=== PATIENT | male | born 1930 | race Two or more races ===

== ENCOUNTER 2016-04-19 16:57 | Inpatient (IN) | payer OTHER ==
[~2016-04-19] VITALS: Ht 170.2 cm; Wt 76.7 kg
[2016-04-19] MEDS ORDERED: ACETAMINOPHEN ES 500 MG TABLET ONE (17:59)
[2016-04-19] MEDS ORDERED: IV NS 0.9% 1,000 ML ONE ×3 (17:59→22:37)
[2016-04-19] MEDS ORDERED: IV SET PRIMARY 1 EA INFUS.SET MC ONE ×2 (17:59→20:24)
[2016-04-19] MEDS ORDERED: ACETAMINOPHEN ES 500 MG TABLET PO ONE (18:00)
[2016-04-19] MEDS ORDERED: IV NS 0.9% 1,000 ML BAG IV ONE ×2 (18:00→19:30)
[2016-04-19 18:08] LABS: BASOPHILS # (AUTO) 0.4 /CMM (0.0-0.2); BASOPHILS % (AUTO) 3.4 % (0.0-2.0); DIFF TOTAL % 100 %; HEMATOCRIT 44 % (39-51); HEMOGLOBIN 14.9 g/dL (13.5-17.5); LYMPHOCYTES % (AUTO) 9.3 % (20.0-44.0); MEAN CORPUSCULAR HEMOGLOBIN 30 PG (26.0-33.0); MEAN CORPUSCULAR HGB CONC 34 g/dl (31.0-36.0); MEAN CORPUSCULAR VOLUME 89 fL (80-96); MONOCYTES # (AUTO) 0.7 /CMM (0.1-1.30); MONOCYTES % (AUTO) 6.5 % (2.0-12.0); NEUTROPHILS # (AUTO) 8.5 /CMM (1.8-8.9); NEUTROPHILS % (AUTO) 80.8 % (43.0-81.0); PLATELET COUNT (AUTO) 198 /CMM (150-450); RED BLOOD CELL COUNT(AUTO) 4.97 MIL/uL (4.5-6.0); WHITE BLOOD COUNT (AUTO) 10.6 K/uL (4.3-11.0)
[2016-04-19 18:18] LABS: ANION GAP 14 (5-14); CALCIUM, SERUM 9.1 mg/dL (8.5-10.1); CARBON DIOXIDE 29 mmol/L (21-32); CHLORIDE 101 mmol/L (98-107); CREATININE 1.9 mg/dL (0.6-1.3); GLUCOSE 209 mg/dL (74-106); POTASSIUM 4.5 mmol/L (3.5-5.1); SODIUM SERUM 139 mmol/L (136-145); UREA NITROGEN, BLOOD 30 mg/dL (7-18)
[2016-04-19 18:22] LABS: INR 1.1 (0.87-1.13); PROTHROMBIN TIME 11.6 SECS (9.5-12.7)
[2016-04-19 18:26] LABS: TROPONIN I < 0.017 ng/mL (0.00-0.056)
[2016-04-19 18:31] LABS: ALANINE AMINOTRANSFERASE 83 U/L (12-78); ALBUMIN 3.1 g/dL (3.4-5.0); ASPARTATE AMINOTRANSFERASE 47 U/L (15-37); BILIRUBIN,DIRECT 0.2 mg/dL (0.0-0.2); BILIRUBIN,TOTAL 0.8 mg/dL (0.2-1.0); INDIRECT BILIRUBIN 0.6 mg/dL (0.0-1.1); TOTAL PROTEIN, SERUM 8.1 g/dL (6.4-8.2)
[2016-04-19] MEDS ORDERED: MULT-24 PO (18:36)
[2016-04-19] MEDS ORDERED: LATA2.5D2 LEFTEYE (18:36)
[2016-04-19] MEDS ORDERED: FURO20TA4 PO (18:36)
[2016-04-19] MEDS ORDERED: CHOL100044 PO (18:36)
[2016-04-19] MEDS ORDERED: FAMO40TA7 PO (18:36)
[2016-04-19] MEDS ORDERED: ASPI-869 PO (18:36)
[2016-04-19] MEDS ORDERED: MELA1TAB17 PO (18:36)
[2016-04-19] MEDS ORDERED: DUTA0.5C15 PO (18:36)
[2016-04-19] MEDS ORDERED: ATOR10TA PO (18:36)
[2016-04-19] MEDS ORDERED: DONE10TA44 PO (18:36)
[2016-04-19] MEDS ORDERED: BRIM5DRO RIGHTEYE (18:36)
[2016-04-19] MEDS ORDERED: INSU100V13 SQ (18:36)
[2016-04-19] MEDS ORDERED: CITA10TA9 PO (18:36)
[2016-04-19 18:58] LABS: LACTIC ACID 2.4 mmol/L (0.4-2.0)
[2016-04-19 19:02] LABS: *LACTIC ACID REFLEX FLAG YES
[2016-04-19] MEDS ORDERED: CEFTRIAXONE 1GM BAG (ER ONLY) 1 GM/50 ML PIGGYBACK IV ONE (19:30)
[2016-04-19 20:11] LABS: KETONES,URINE Negative (NEGATIVE); LEUKOCYTE ESTERASE ,URINE Small (NEGATIVE)
[2016-04-19 20:13] LABS: ADD UA MICROSCOPIC YES
[2016-04-19 20:19] LABS: ADD URINE CULTURE YES
[2016-04-19] MEDS ORDERED: CEFTRIAXONE 1GM BAG (ER ONLY) 50 ML IV ONE (20:24)
[2016-04-19 21:15] VITALS: BP 123/61
[2016-04-19 21:30] VITALS: BP 123/61
[2016-04-19] MEDS ORDERED: MORPHINE SULFATE INJ 2 MG/ML DISP.SYRIN IV PRN (22:30)
[2016-04-19] MEDS ORDERED: CEFTRIAXONE 1 G in IV D5W 50 ML IV SCH (22:30)
[2016-04-19] MEDS ORDERED: Z GUARD REMEDY 2 OZ OINT TP PRN (22:30)
[2016-04-19] MEDS ORDERED: MAGNESIUM HYDROXIDE 30 ML UDC PO PRN (22:30)
[2016-04-19] MEDS ORDERED: MAG HYDROX/AL HYDROX/SIMETH 30 ML UDC PO PRN (22:30)
[2016-04-19] MEDS ORDERED: ZOLPIDEM TARTRATE 5 MG TABLET PO PRN (22:30)
[2016-04-19] MEDS ORDERED: ONDANSETRON HCL/PF 4 MG/2 ML VIAL IVP PRN (22:30)
[2016-04-19] MEDS ORDERED: IV SET PRIMARY PUMP SET 1 EA INFUS.SET MC ONE (22:37)
[2016-04-19] MEDS: IV NS 0.9% 1,000 ML IV PRN (22:47)
[2016-04-20] VITALS: BP 130/72
[2016-04-20 04:00] VITALS: BP 122/77
[2016-04-20] MEDS ORDERED: DEXTROSE 50%-WATER 50 ML DISP.SYRIN IV PRN (04:30)
[2016-04-20] MEDS ORDERED: FUROSEMIDE 20 MG TABLET PO SCH (04:30)
[2016-04-20] MEDS ORDERED: FUROSEMIDE 20 MG TABLET ONE (05:57)
[2016-04-20] MEDS: ACETAMINOPHEN 325 MG TABLET PO PRN (06:01)
[2016-04-20 06:46] LABS: BASOPHILS # (AUTO) 0.1 /CMM (0.0-0.2); BASOPHILS % (AUTO) 0.5 % (0.0-2.0); DIFF TOTAL % 100 %; EOSINOPHILS % (AUTO) 0.2 % (0.0-6.0); HEMATOCRIT 44 % (39-51); HEMOGLOBIN 14.6 g/dL (13.5-17.5); LYMPHOCYTES # (AUTO) 0.9 /CMM (0.8-4.8); LYMPHOCYTES % (AUTO) 8.7 % (20.0-44.0); MEAN CORPUSCULAR HEMOGLOBIN 29 PG (26.0-33.0); MEAN CORPUSCULAR HGB CONC 33 g/dl (31.0-36.0); MEAN CORPUSCULAR VOLUME 89 fL (80-96); MONOCYTES # (AUTO) 1.1 /CMM (0.1-1.30); MONOCYTES % (AUTO) 10.2 % (2.0-12.0); NEUTROPHILS # (AUTO) 8.5 /CMM (1.8-8.9); NEUTROPHILS % (AUTO) 80.4 % (43.0-81.0); PLATELET COUNT (AUTO) 166 /CMM (150-450); RED BLOOD CELL COUNT(AUTO) 4.98 MIL/uL (4.5-6.0); WHITE BLOOD COUNT (AUTO) 10.6 K/uL (4.3-11.0)
[2016-04-20] MEDS: BLOOD SUGAR DIAGNOSTIC 1 EACH STRIP VI SCH ×4 (06:57→21:18)
[2016-04-20] MEDS: INSULIN REGULAR, HUMAN 100 UNIT/ML 3 ML VIAL SQ PRN (06:58)
[2016-04-20 09:01] LABS: ALBUMIN 2.3 g/dL (3.4-5.0); BILIRUBIN,TOTAL 0.4 mg/dL (0.2-1.0); CALCIUM, SERUM 7.5 mg/dL (8.5-10.1); CREATININE 1.5 mg/dL (0.6-1.3); PHOSPHORUS 2.4 mg/dL (2.5-4.9); POTASSIUM 3.8 mmol/L (3.5-5.1); TOTAL PROTEIN, SERUM 6.4 g/dL (6.4-8.2)
[2016-04-20] MEDS: CHOLECALCIFEROL 1,000 UNIT TABLET (VIT D3) PO SCH (09:07)
[2016-04-20] MEDS: DUTASTERIDE (0.5 MG) 0.5 MG CAPSULE PO SCH (09:07)
[2016-04-20] MEDS: MULTIVITAMINS,THERAPEUTIC 1 UDTAB TABLET PO SCH (09:08)
[2016-04-20] MEDS: ASPIRIN EC 325 MG TABLET.DR PO SCH (09:08)
[2016-04-20] MEDS: PANTOPRAZOLE 40 MG VIAL IV SCH (09:08)
[2016-04-20 09:18] VITALS: BP 110/60
[2016-04-20] MEDS: BRIMONIDINE TARTRATE OPHT SOLN 5 ML BOTTLE RIGHTEYE SCH ×2 (10:27→16:12)
[2016-04-20] MEDS: IV NS 0.9% 1,000 ML IV PRN (11:40)
[2016-04-20 12:00] VITALS: BP 111/63
[2016-04-20] MEDS ORDERED: PNEUMOCOCCAL 23-VAL P-SAC VAC 0.5 ML VIAL SQ ONE (13:00)
[2016-04-20 16:00] VITALS: BP 125/66
[2016-04-20] MEDS: Z GUARD REMEDY 2 OZ OINT TP SCH (16:12)
[2016-04-20] MEDS ORDERED: K PHOS NEUTRAL 250 MG TABLET PO ONE (16:30)
[2016-04-20] MEDS: DONEPEZIL 5 MG TABLET PO SCH (17:48)
[2016-04-20] MEDS: ATORVASTATIN 10 MG TABLET PO SCH (17:48)
[2016-04-20] MEDS: *INSULIN REGULAR(HUMULIN R)HUM 100 UNIT/ML VIAL SQ PRN ×2 (17:49→21:27)
[2016-04-20 20:00] VITALS: BP 102/69
[2016-04-20] MEDS: CEFTRIAXONE 1 G in IV D5W 50 ML IV SCH (21:17)
[2016-04-20] MEDS ORDERED: SECONDARY IV SET 1 EA INFUS.SET MC ONE (21:18)
[2016-04-20] MEDS: CITALOPRAM HYDROBROMIDE 10 MG TABLET PO SCH (21:18)
[2016-04-20] MEDS: LATANOPROST EYE DROP 0.005% 2.5 ML BOTTLE LEFTEYE SCH (21:18)
[2016-04-20] MEDS: INSULIN DETEMIR 100 UNIT/ML CARTRIDGE SQ SCH (21:25)
[2016-04-21] VITALS: BP 120/61
[2016-04-21] MEDS: IV NS 0.9% 1,000 ML IV PRN ×2 (03:25→20:52)
[2016-04-21 04:00] VITALS: BP 114/61
[2016-04-21] MEDS: ACETAMINOPHEN 325 MG TABLET PO PRN ×2 (04:13→17:35)
[2016-04-21] MEDS: BLOOD SUGAR DIAGNOSTIC 1 EACH STRIP VI SCH ×4 (06:33→21:22)
[2016-04-21 06:46] LABS: BASOPHILS % (AUTO) 0.2 % (0.0-2.0); DIFF TOTAL % 100 %; EOSINOPHILS % (AUTO) 0.1 % (0.0-6.0); HEMATOCRIT 36 % (39-51); HEMOGLOBIN 12.3 g/dL (13.5-17.5); LYMPHOCYTES # (AUTO) 0.9 /CMM (0.8-4.8); LYMPHOCYTES % (AUTO) 11.3 % (20.0-44.0); MEAN CORPUSCULAR HEMOGLOBIN 30 PG (26.0-33.0); MEAN CORPUSCULAR HGB CONC 34 g/dl (31.0-36.0); MEAN CORPUSCULAR VOLUME 88 fL (80-96); MONOCYTES # (AUTO) 0.7 /CMM (0.1-1.30); MONOCYTES % (AUTO) 9.1 % (2.0-12.0); NEUTROPHILS # (AUTO) 6.1 /CMM (1.8-8.9); NEUTROPHILS % (AUTO) 79.3 % (43.0-81.0); PLATELET COUNT (AUTO) 178 /CMM (150-450); RED BLOOD CELL COUNT(AUTO) 4.14 MIL/uL (4.5-6.0); WHITE BLOOD COUNT (AUTO) 7.7 K/uL (4.3-11.0)
[2016-04-21 07:17] LABS: CALCIUM, SERUM 7.5 mg/dL (8.5-10.1); CREATININE 1.7 mg/dL (0.6-1.3); POTASSIUM 3.5 mmol/L (3.5-5.1)
[2016-04-21 08:00] VITALS: BP 115/66
[2016-04-21] MEDS: PANTOPRAZOLE 40 MG VIAL IV SCH (08:18)
[2016-04-21] MEDS: CHOLECALCIFEROL 1,000 UNIT TABLET (VIT D3) PO SCH (08:18)
[2016-04-21] MEDS: MULTIVITAMINS,THERAPEUTIC 1 UDTAB TABLET PO SCH (08:18)
[2016-04-21] MEDS: BRIMONIDINE TARTRATE OPHT SOLN 5 ML BOTTLE RIGHTEYE SCH ×2 (08:19→16:39)
[2016-04-21] MEDS: Z GUARD REMEDY 2 OZ OINT TP SCH ×2 (08:19→16:39)
[2016-04-21] MEDS: ASPIRIN EC 325 MG TABLET.DR PO SCH (08:19)
[2016-04-21] MEDS: DUTASTERIDE (0.5 MG) 0.5 MG CAPSULE PO SCH (08:19)
[2016-04-21] MEDS ORDERED: SECONDARY IV SET 1 EA INFUS.SET MC ONE (10:58)
[2016-04-21] MEDS ORDERED: Magnesium 1GM/D5W 100ML PREMIX 100 ML IV SCH (11:00)
[2016-04-21] MEDS: INSULIN REGULAR, HUMAN 100 UNIT/ML 3 ML VIAL SQ PRN ×2 (11:14→16:47)
[2016-04-21 16:00] VITALS: BP 124/65
[2016-04-21] MEDS ORDERED: K PHOS NEUTRAL 250 MG TABLET PO ONE (16:00)
[2016-04-21] MEDS: ATORVASTATIN 10 MG TABLET PO SCH (17:35)
[2016-04-21] MEDS: DONEPEZIL 5 MG TABLET PO SCH (17:35)
[2016-04-21 20:00] VITALS: BP 100/58
[2016-04-21] MEDS: CEFTRIAXONE 1 G in IV D5W 50 ML IV SCH (21:17)
[2016-04-21] MEDS: CITALOPRAM HYDROBROMIDE 10 MG TABLET PO SCH (21:18)
[2016-04-21] MEDS: INSULIN DETEMIR 100 UNIT/ML CARTRIDGE SQ SCH (21:22)
[2016-04-21] MEDS: *INSULIN REGULAR(HUMULIN R)HUM 100 UNIT/ML VIAL SQ PRN (21:23)
[2016-04-21] MEDS: LATANOPROST EYE DROP 0.005% 2.5 ML BOTTLE LEFTEYE SCH (21:24)
[2016-04-22 04:00] VITALS: BP 112/74
[2016-04-22 06:00] VITALS: BP 112/74
[2016-04-22 06:57] LABS: PHOSPHORUS 2.3 mg/dL (2.5-4.9)
[2016-04-22] MEDS: BLOOD SUGAR DIAGNOSTIC 1 EACH STRIP VI SCH ×4 (07:03→23:30)
[2016-04-22] MEDS: INSULIN REGULAR, HUMAN 100 UNIT/ML 3 ML VIAL SQ PRN ×2 (07:05→12:35)
[2016-04-22 08:00] VITALS: BP 105/55
[2016-04-22] MEDS: FUROSEMIDE 20 MG TABLET PO SCH (08:59)
[2016-04-22] MEDS: CHOLECALCIFEROL 1,000 UNIT TABLET (VIT D3) PO SCH (08:59)
[2016-04-22] MEDS: DUTASTERIDE (0.5 MG) 0.5 MG CAPSULE PO SCH (08:59)
[2016-04-22] MEDS: Z GUARD REMEDY 2 OZ OINT TP SCH ×2 (09:00→17:19)
[2016-04-22] MEDS: MULTIVITAMINS,THERAPEUTIC 1 UDTAB TABLET PO SCH (09:00)
[2016-04-22] MEDS: ASPIRIN EC 325 MG TABLET.DR PO SCH (09:00)
[2016-04-22] MEDS: PANTOPRAZOLE 40 MG VIAL IV SCH (09:00)
[2016-04-22] MEDS: BRIMONIDINE TARTRATE OPHT SOLN 5 ML BOTTLE RIGHTEYE SCH ×2 (09:00→17:18)
[2016-04-22] MEDS: IV NS 0.9% 1,000 ML IV PRN (10:47)
[2016-04-22] MEDS ORDERED: K PHOS NEUTRAL 250 MG TABLET PO ONE (11:00)
[2016-04-22 16:00] VITALS: BP 117/72
[2016-04-22] MEDS: DONEPEZIL 5 MG TABLET PO SCH (17:18)
[2016-04-22] MEDS: ATORVASTATIN 10 MG TABLET PO SCH (17:18)
[2016-04-22 20:00] VITALS: BP 125/67
[2016-04-22] MEDS: LATANOPROST EYE DROP 0.005% 2.5 ML BOTTLE LEFTEYE SCH (21:30)
[2016-04-22] MEDS: CITALOPRAM HYDROBROMIDE 10 MG TABLET PO SCH (21:30)
[2016-04-22] MEDS: CEFTRIAXONE 1 G in IV D5W 50 ML IV SCH (21:30)
[2016-04-22] MEDS: INSULIN DETEMIR 100 UNIT/ML CARTRIDGE SQ SCH (21:36)
[2016-04-22] MEDS: *INSULIN REGULAR(HUMULIN R)HUM 100 UNIT/ML VIAL SQ PRN (21:37)
[2016-04-23 04:00] VITALS: BP 106/50
[2016-04-23] MEDS: IV NS 0.9% 1,000 ML IV PRN ×2 (04:10→17:30)
[2016-04-23 06:20] LABS: BASOPHILS % (AUTO) 0.3 % (0.0-2.0); DIFF TOTAL % 100 %; EOSINOPHILS # (AUTO) 0.2 /CMM (0.0-0.7); EOSINOPHILS % (AUTO) 2.6 % (0.0-6.0); HEMATOCRIT 34 % (39-51); HEMOGLOBIN 11.9 g/dL (13.5-17.5); LYMPHOCYTES # (AUTO) 1.3 /CMM (0.8-4.8); LYMPHOCYTES % (AUTO) 19.8 % (20.0-44.0); MEAN CORPUSCULAR HEMOGLOBIN 30 PG (26.0-33.0); MEAN CORPUSCULAR HGB CONC 35 g/dl (31.0-36.0); MEAN CORPUSCULAR VOLUME 87 fL (80-96); MONOCYTES # (AUTO) 0.6 /CMM (0.1-1.30); MONOCYTES % (AUTO) 9.5 % (2.0-12.0); NEUTROPHILS # (AUTO) 4.4 /CMM (1.8-8.9); NEUTROPHILS % (AUTO) 67.8 % (43.0-81.0); PLATELET COUNT (AUTO) 190 /CMM (150-450); RED BLOOD CELL COUNT(AUTO) 3.97 MIL/uL (4.5-6.0); WHITE BLOOD COUNT (AUTO) 6.5 K/uL (4.3-11.0)
[2016-04-23 06:38] LABS: CALCIUM, SERUM 7.4 mg/dL (8.5-10.1); CREATININE 1.5 mg/dL (0.6-1.3); PHOSPHORUS 2.2 mg/dL (2.5-4.9); POTASSIUM 3.3 mmol/L (3.5-5.1)
[2016-04-23] MEDS: ACETAMINOPHEN 325 MG TABLET PO PRN (07:30)
[2016-04-23] MEDS: BLOOD SUGAR DIAGNOSTIC 1 EACH STRIP VI SCH ×4 (07:37→21:37)
[2016-04-23 08:00] VITALS: BP 105/61
[2016-04-23] MEDS: PANTOPRAZOLE 40 MG VIAL IV SCH (08:49)
[2016-04-23] MEDS: CHOLECALCIFEROL 1,000 UNIT TABLET (VIT D3) PO SCH (08:49)
[2016-04-23] MEDS: ASPIRIN EC 325 MG TABLET.DR PO SCH (08:49)
[2016-04-23] MEDS: MULTIVITAMINS,THERAPEUTIC 1 UDTAB TABLET PO SCH (08:49)
[2016-04-23] MEDS: BRIMONIDINE TARTRATE OPHT SOLN 5 ML BOTTLE RIGHTEYE SCH ×2 (08:51→16:07)
[2016-04-23] MEDS: Z GUARD REMEDY 2 OZ OINT TP SCH ×2 (08:51→16:07)
[2016-04-23] MEDS: DUTASTERIDE (0.5 MG) 0.5 MG CAPSULE PO SCH (08:52)
[2016-04-23] MEDS ORDERED: POTASSIUM CHLORIDE 10 MEQ TABLET.SA PO ONE (10:00)
[2016-04-23] MEDS ORDERED: K PHOS NEUTRAL 250 MG TABLET PO ONE (13:30)
[2016-04-23 16:00] VITALS: BP 115/63
[2016-04-23] MEDS: DONEPEZIL 5 MG TABLET PO SCH (17:24)
[2016-04-23] MEDS: ATORVASTATIN 10 MG TABLET PO SCH (17:24)
[2016-04-23] MEDS: INSULIN REGULAR, HUMAN 100 UNIT/ML 3 ML VIAL SQ PRN (17:27)
[2016-04-23 20:00] VITALS: BP 124/65
[2016-04-23] MEDS: CEFTRIAXONE 1 G in IV D5W 50 ML IV SCH (20:20)
[2016-04-23] MEDS: CITALOPRAM HYDROBROMIDE 10 MG TABLET PO SCH (21:41)
[2016-04-23] MEDS: INSULIN DETEMIR 100 UNIT/ML CARTRIDGE SQ SCH (21:42)
[2016-04-23] MEDS: LATANOPROST EYE DROP 0.005% 2.5 ML BOTTLE LEFTEYE SCH (21:49)
[2016-04-24 04:00] VITALS: BP 123/63
[2016-04-24 06:17] LABS: BASOPHILS % (AUTO) 0.6 % (0.0-2.0); DIFF TOTAL % 100 %; EOSINOPHILS # (AUTO) 0.2 /CMM (0.0-0.7); EOSINOPHILS % (AUTO) 4.3 % (0.0-6.0); HEMATOCRIT 35 % (39-51); HEMOGLOBIN 11.6 g/dL (13.5-17.5); LYMPHOCYTES # (AUTO) 0.8 /CMM (0.8-4.8); LYMPHOCYTES % (AUTO) 15.1 % (20.0-44.0); MEAN CORPUSCULAR HEMOGLOBIN 30 PG (26.0-33.0); MEAN CORPUSCULAR HGB CONC 34 g/dl (31.0-36.0); MEAN CORPUSCULAR VOLUME 88 fL (80-96); MONOCYTES # (AUTO) 0.7 /CMM (0.1-1.30); MONOCYTES % (AUTO) 11.8 % (2.0-12.0); NEUTROPHILS # (AUTO) 3.8 /CMM (1.8-8.9); NEUTROPHILS % (AUTO) 68.2 % (43.0-81.0); PLATELET COUNT (AUTO) 211 /CMM (150-450); RED BLOOD CELL COUNT(AUTO) 3.94 MIL/uL (4.5-6.0); WHITE BLOOD COUNT (AUTO) 5.6 K/uL (4.3-11.0)
[2016-04-24 06:34] LABS: CALCIUM, SERUM 7.5 mg/dL (8.5-10.1); CREATININE 1.4 mg/dL (0.6-1.3); PHOSPHORUS 2.8 mg/dL (2.5-4.9); POTASSIUM 3.5 mmol/L (3.5-5.1)
[2016-04-24 08:00] VITALS: BP 99/51
[2016-04-24] MEDS: BLOOD SUGAR DIAGNOSTIC 1 EACH STRIP VI SCH ×4 (08:16→22:33)
[2016-04-24] MEDS: PANTOPRAZOLE 40 MG VIAL IV SCH (08:18)
[2016-04-24] MEDS: DUTASTERIDE (0.5 MG) 0.5 MG CAPSULE PO SCH (08:18)
[2016-04-24] MEDS: MULTIVITAMINS,THERAPEUTIC 1 UDTAB TABLET PO SCH (08:18)
[2016-04-24] MEDS: ASPIRIN EC 325 MG TABLET.DR PO SCH (08:19)
[2016-04-24] MEDS: CHOLECALCIFEROL 1,000 UNIT TABLET (VIT D3) PO SCH (08:19)
[2016-04-24] MEDS: FUROSEMIDE 20 MG TABLET PO SCH (08:20)
[2016-04-24] MEDS: BRIMONIDINE TARTRATE OPHT SOLN 5 ML BOTTLE RIGHTEYE SCH ×2 (08:21→17:16)
[2016-04-24] MEDS: Z GUARD REMEDY 2 OZ OINT TP SCH ×2 (08:21→17:16)
[2016-04-24] MEDS: INSULIN REGULAR, HUMAN 100 UNIT/ML 3 ML VIAL SQ PRN ×2 (12:17→17:23)
[2016-04-24] MEDS ORDERED: SECONDARY IV SET 1 EA INFUS.SET MC ONE (12:28)
[2016-04-24] MEDS: Magnesium 1GM/D5W 100ML PREMIX 100 ML IV SCH ×2 (12:33→13:47)
[2016-04-24 16:00] VITALS: BP 106/44
[2016-04-24] MEDS: ATORVASTATIN 10 MG TABLET PO SCH (17:15)
[2016-04-24] MEDS: DONEPEZIL 5 MG TABLET PO SCH (17:15)
[2016-04-24 20:00] VITALS: BP 118/58
[2016-04-24] MEDS: CEFTRIAXONE 1 G in IV D5W 50 ML IV SCH (22:21)
[2016-04-24] MEDS: CITALOPRAM HYDROBROMIDE 10 MG TABLET PO SCH (22:21)
[2016-04-24] MEDS: *INSULIN REGULAR(HUMULIN R)HUM 100 UNIT/ML VIAL SQ PRN (22:25)
[2016-04-24] MEDS: INSULIN DETEMIR 100 UNIT/ML CARTRIDGE SQ SCH (22:26)
[2016-04-24] MEDS: LATANOPROST EYE DROP 0.005% 2.5 ML BOTTLE LEFTEYE SCH (22:33)
[2016-04-25 04:00] VITALS: BP 146/73
[2016-04-25] MEDS: IV NS 0.9% 1,000 ML IV PRN (04:37)
[2016-04-25] MEDS: BLOOD SUGAR DIAGNOSTIC 1 EACH STRIP VI SCH ×3 (06:38→17:30)
[2016-04-25 07:03] LABS: BASOPHILS % (AUTO) 0.5 % (0.0-2.0); DIFF TOTAL % 100 %; EOSINOPHILS # (AUTO) 0.4 /CMM (0.0-0.7); EOSINOPHILS % (AUTO) 5.5 % (0.0-6.0); HEMATOCRIT 35 % (39-51); HEMOGLOBIN 11.8 g/dL (13.5-17.5); LYMPHOCYTES # (AUTO) 1.2 /CMM (0.8-4.8); LYMPHOCYTES % (AUTO) 17.3 % (20.0-44.0); MEAN CORPUSCULAR HEMOGLOBIN 30 PG (26.0-33.0); MEAN CORPUSCULAR HGB CONC 34 g/dl (31.0-36.0); MEAN CORPUSCULAR VOLUME 88 fL (80-96); MONOCYTES # (AUTO) 0.6 /CMM (0.1-1.30); MONOCYTES % (AUTO) 8.6 % (2.0-12.0); NEUTROPHILS # (AUTO) 4.8 /CMM (1.8-8.9); NEUTROPHILS % (AUTO) 68.1 % (43.0-81.0); PLATELET COUNT (AUTO) 225 /CMM (150-450); RED BLOOD CELL COUNT(AUTO) 3.98 MIL/uL (4.5-6.0)
[2016-04-25 07:22] LABS: CALCIUM, SERUM 7.5 mg/dL (8.5-10.1); CREATININE 1.4 mg/dL (0.6-1.3); PHOSPHORUS 2.5 mg/dL (2.5-4.9); POTASSIUM 3.4 mmol/L (3.5-5.1)
[2016-04-25 08:00] VITALS: BP 131/65
[2016-04-25] MEDS: ASPIRIN EC 325 MG TABLET.DR PO SCH (08:31)
[2016-04-25] MEDS: MULTIVITAMINS,THERAPEUTIC 1 UDTAB TABLET PO SCH (08:31)
[2016-04-25] MEDS: DUTASTERIDE (0.5 MG) 0.5 MG CAPSULE PO SCH (08:31)
[2016-04-25] MEDS: CHOLECALCIFEROL 1,000 UNIT TABLET (VIT D3) PO SCH (08:31)
[2016-04-25] MEDS: PANTOPRAZOLE 40 MG VIAL IV SCH (08:31)
[2016-04-25] MEDS: BRIMONIDINE TARTRATE OPHT SOLN 5 ML BOTTLE RIGHTEYE SCH ×2 (08:32→16:27)
[2016-04-25] MEDS: Z GUARD REMEDY 2 OZ OINT TP SCH ×2 (08:32→16:27)
[2016-04-25] MEDS ORDERED: POTASSIUM CHLORIDE 20 MEQ TAB.PRT.SR PO SCH (12:00)
[2016-04-25] MEDS: INSULIN REGULAR, HUMAN 100 UNIT/ML 3 ML VIAL SQ PRN ×2 (12:25→17:45)
[2016-04-25 16:00] VITALS: BP 124/60
[2016-04-25] MEDS: ATORVASTATIN 10 MG TABLET PO SCH (17:30)
[2016-04-25] MEDS: DONEPEZIL 5 MG TABLET PO SCH (17:30)
== END 2016-04-25 18:30 | disposition home or self-care (01) | DRG 871 ==
LOC: ER 16:59 → TELE1 20:44 → MEDSG1 04-21 08:58
PROVIDERS: ADMIT Family Medicine; ATTEND Family Medicine
DX: A41.9 Sepsis, unspecified organism (principal); G92 Toxic encephalopathy; N17.0 Acute kidney failure with tubular necrosis; E87.2 Acidosis; N39.0 Urinary tract infection, site not specified; I69.854 Hemiplegia and hemiparesis following other cerebrovascular disease affecting left non-dominant side; R65.20 Severe sepsis without septic shock; F03.90 Unspecified dementia, unspecified severity, without behavioral disturbance, psychotic disturbance, mood disturbance, and anxiety; E11.9 Type 2 diabetes mellitus without complications; E78.5 Hyperlipidemia, unspecified; E86.9 Volume depletion, unspecified; F32.9 Major depressive disorder, single episode, unspecified; K21.9 Gastro-esophageal reflux disease without esophagitis; M20.42 Other hammer toe(s) (acquired), left foot; M20.41 Other hammer toe(s) (acquired), right foot; N40.1 Benign prostatic hyperplasia with lower urinary tract symptoms; Z79.4 Long term (current) use of insulin; Z95.0 Presence of cardiac pacemaker; L85.3 Xerosis cutis; L57.0 Actinic keratosis
CPT/HCPCS: 36415; 71010-TC; 80048-TC; 80053-TC; 80076-TC; 81000-TC; 82962-TC; 83605-TC; 83735-TC; 83880; 84100-TC; 84484-TC; 85025-TC; 85730-TC; 87040-TC; 87081-TC; 87086-TC; 90732; 94799-TC; A4606; C9113; J0696; J1815; J3475; J7030; J7060; Z7610